=== PATIENT | female | born 1980 | race Hispanic/Latino ===

== ENCOUNTER → 2019-04-24 | Outpatient (CLI) | payer BC | END | disposition home or self-care (01) | LOC: RAH 08:04 | PROVIDERS: ATTEND Obstetrics & Gynecology | DX: Z12.31 Encounter for screening mammogram for malignant neoplasm of breast (principal) | CPT/HCPCS: 77067 ==

== ENCOUNTER → 2020-05-18 | Outpatient (CLI) | payer BC | END | disposition home or self-care (01) | LOC: RAH 14:51 | PROVIDERS: ATTEND Obstetrics & Gynecology | DX: Z12.31 Encounter for screening mammogram for malignant neoplasm of breast (principal) | CPT/HCPCS: 77067 ==

== ENCOUNTER → 2023-02-02 | Outpatient (CLI) | payer BC | END | disposition home or self-care (01) | LOC: RAH 08:25 | PROVIDERS: ATTEND Obstetrics & Gynecology | DX: Z12.31 Encounter for screening mammogram for malignant neoplasm of breast (principal) | CPT/HCPCS: 77067 ==

== ENCOUNTER → 2023-03-09 | Outpatient (CLI) | payer BC ==
[2023-03-09 16:21] LABS: BASOPHILS % (AUTO) 0.6 % (0.0-5.0); EOSINOPHILS % (AUTO) 1.5 % (0.0-8.0); HEMATOCRIT 38.1 % (36-48); LYMPHOCYTES % (AUTO) 33.6 % (21.0-51.0); MEAN CORPUSCULAR HEMOGLOBIN 27.5 pg (27.0-33.0); MEAN CORPUSCULAR HGB CONC 32.3 g/dL (32.0-36.0); MONOCYTES % (AUTO) 6.3 % (3.0-13.0); NEUTROPHILS % (AUTO) 57.8 % (40.0-77.0); PLATELET COUNT (AUTO) 305 K/uL (130-400); RED BLOOD CELL COUNT(AUTO) 4.48 MIL/uL (4.00-5.50); WHITE BLOOD COUNT (AUTO) 6.5 K/uL (4.8-10.8)
[2023-03-09 16:22] LABS: APPEARANCE,URINE CLOUDY (CLEAR); BILIRUBIN,URINE NEGATIVE (NEGATIVE); COLOR,URINE YELLOW (YELLOW); GLUCOSE, URINE (UA) NEGATIVE (NEGATIVE); KETONES,URINE NEGATIVE (NEGATIVE); LEUKOCYTE ESTERASE ,URINE NEGATIVE Leu/uL (NEGATIVE); NITRATE,URINE NEGATIVE (NEGATIVE); OCCULT BLOOD,URINE NEGATIVE (NEGATIVE); PH,URINE 5.5 (5.0-8.0); PROTEIN,URINE 20 mg/dL (NEGATIVE); UROBILINOGEN,URINE 0.2 mg/dL (0.2-1.0)
[2023-03-09 16:25] LABS: BACTERIA,URINE FEW /HPF (None Seen); MUCUS,URINE FEW LPF (None Seen); SQUAMOUS EPITHELIAL CELL,UR MOD /HPF (0-2)
[2023-03-09 16:43] LABS: HEMOGLOBIN A1C 5.4 % (4.0-6.0)
[2023-03-09 16:44] LABS: ALBUMIN 4.5 g/dL (3.5-5.0); CREATININE 0.7 mg/dL (0.5-1.5); POTASSIUM 3.7 mmol/L (3.5-5.1); THYROID STIMULATING HORMONE 1.16 uIU/mL (0.36-3.74); TOTAL PROTEIN, SERUM 7.4 g/dL (6.0-8.3)
== END | disposition home or self-care (01) ==
LOC: LAB 11:35
PROVIDERS: ATTEND Internal Medicine Cardiovascular Disease
DX: R00.2 Palpitations (principal)
CPT/HCPCS: 36415; 80053; 80061; 81001; 83036; 84443; 85025

== ENCOUNTER 2023-03-23 05:37 | Emergency (ER) | payer BC, OTHER ==
[~2023-03-23] VITALS: Ht 157.5 cm; Wt 81.6 kg
[2023-03-23] MEDS ORDERED: ONDANSETRON 4MG INJ ONE (05:45)
[2023-03-23 05:59] LABS: BASOPHILS % (AUTO) 0.3 % (0.0-5.0); EOSINOPHILS % (AUTO) 0.8 % (0.0-8.0); HEMATOCRIT 36.6 % (36-48); LYMPHOCYTES % (AUTO) 19.9 % (21.0-51.0); MEAN CORPUSCULAR HEMOGLOBIN 27.7 pg (27.0-33.0); MEAN CORPUSCULAR HGB CONC 33.3 g/dL (32.0-36.0); MEAN CORPUSCULAR VOLUME 83.2 fL (79-99); NEUTROPHILS % (AUTO) 71.7 % (40.0-77.0); PLATELET COUNT (AUTO) 276 K/uL (130-400); RED CELL DISTRIBUTION WIDTH 12.9 % (11.0-15.5); WHITE BLOOD COUNT (AUTO) 7.6 K/uL (4.8-10.8)
[2023-03-23] MEDS ORDERED: 0.9%NACL 1000ML 1,000 ML IV ONE (06:00)
[2023-03-23] MEDS ORDERED: KETOROLAC 30MG VIAL (30MG/ML) IVP ONE (06:00)
[2023-03-23] MEDS ORDERED: ONDANSETRON 4MG INJ IVP ONE (06:00)
[2023-03-23 06:06] LABS: APPEARANCE,URINE TURBID (CLEAR); BILIRUBIN,URINE NEGATIVE (NEGATIVE); COLOR,URINE LIGHT-ORANGE (YELLOW); GLUCOSE, URINE (UA) NEGATIVE (NEGATIVE); KETONES,URINE NEGATIVE (NEGATIVE); LEUKOCYTE ESTERASE ,URINE NEGATIVE Leu/uL (NEGATIVE); NITRATE,URINE NEGATIVE (NEGATIVE); OCCULT BLOOD,URINE NEGATIVE (NEGATIVE); PH,URINE 5.5 (5.0-8.0); PROTEIN,URINE 20 mg/dL (NEGATIVE); UROBILINOGEN,URINE 0.2 mg/dL (0.2-1.0)
[2023-03-23 06:12] LABS: BACTERIA,URINE RARE /HPF (None Seen); CALCIUM OXALATE CRYSTALS,UR RARE /LPF (None Seen); MUCUS,URINE MANY LPF (None Seen); SQUAMOUS EPITHELIAL CELL,UR MANY /HPF (0-2)
[2023-03-23 06:19] LABS: ALBUMIN 4.3 g/dL (3.5-5.0); CREATININE 0.7 mg/dL (0.5-1.5); POTASSIUM 3.5 mmol/L (3.5-5.1); TOTAL PROTEIN, SERUM 7.2 g/dL (6.0-8.3)
[2023-03-23 07:17] VITALS: BP 132/78; PULSE 70; RESP 18; O2SAT 98
== END 2023-03-23 08:53 | disposition home or self-care (01) ==
LOC: EDH 05:37
DX: N20.0 Calculus of kidney (principal); Z90.710 Acquired absence of both cervix and uterus
CPT/HCPCS: 99284; 74176; 96374; 96361; 96375; 80053; 83690; 85025; 81001; 36415; J2405; J1885

== ENCOUNTER → 2023-04-05 | Outpatient (CLI) | payer BC, OTHER ==
[2023-04-05 16:49] LABS: BASOPHILS # (AUTO) 0.04 K/uL (0.00-0.20); BASOPHILS % (AUTO) 0.6 % (0.0-5.0); EOSINOPHILS # (AUTO) 0.11 K/uL (0.00-0.70); EOSINOPHILS % (AUTO) 1.5 % (0.0-8.0); HEMATOCRIT 38.1 % (36-48); IMMATURE GRANULOCYTE ABSOLUTE 0.03 K/uL (0-1); LYMPHOCYTES # (AUTO) 2.4 K/uL (1.0-4.8); LYMPHOCYTES % (AUTO) 32.9 % (21.0-51.0); MEAN CORPUSCULAR HEMOGLOBIN 27.6 pg (27.0-33.0); MEAN CORPUSCULAR HGB CONC 32.5 g/dL (32.0-36.0); MEAN CORPUSCULAR VOLUME 84.7 fL (79-99); MONOCYTES # (AUTO) 0.5 K/uL (0.1-1.0); MONOCYTES % (AUTO) 6.8 % (3.0-13.0); NEUTROPHILS # (AUTO) 4.1 K/uL (1.8-7.7); NEUTROPHILS % (AUTO) 57.8 % (40.0-77.0); PLATELET COUNT (AUTO) 329 K/uL (130-400); RED CELL DISTRIBUTION WIDTH 13.2 % (11.0-15.5); WHITE BLOOD COUNT (AUTO) 7.2 K/uL (4.8-10.8)
[2023-04-05 16:54] LABS: CREATININE 0.8 mg/dL (0.5-1.5)
[2023-04-05 17:03] LABS: INR 0.93 (0.85-1.15); PROTHROMBIN TIME 10.7 SEC (9.6-11.6)
[2023-04-05 17:05] LABS: PARTIAL THROMBOPLASTIN TIME 27.2 SEC (26.3-35.5)
== END | disposition home or self-care (01) ==
LOC: LAB 15:11
PROVIDERS: ATTEND Internal Medicine Cardiovascular Disease
DX: I87.1 Compression of vein (principal); I87.2 Venous insufficiency (chronic) (peripheral)
CPT/HCPCS: 36415; 80048; 85025; 85610; 85730

== ENCOUNTER → 2024-02-05 | Outpatient (CLI) | payer BC | END | disposition home or self-care (01) | LOC: RAH 14:49 | PROVIDERS: ATTEND Obstetrics & Gynecology | DX: Z12.31 Encounter for screening mammogram for malignant neoplasm of breast (principal) | CPT/HCPCS: 77067 ==

== ENCOUNTER → 2024-10-14 | Outpatient (CLI) | payer BC, OTHER ==
[2024-10-14 12:27] LABS: BASOPHILS # (AUTO) 0.03 K/uL (0.00-0.20); BASOPHILS % (AUTO) 0.5 % (0.0-5.0); EOSINOPHILS % (AUTO) 1.6 % (0.0-8.0); HEMATOCRIT 39.1 % (36-48); IMMATURE GRANULOCYTE ABSOLUTE 0.02 K/uL (0-1); LYMPHOCYTES % (AUTO) 32.6 % (21.0-51.0); MEAN CORPUSCULAR HGB CONC 33.2 g/dL (32.0-36.0); MEAN CORPUSCULAR VOLUME 84.1 fL (79-99); MONOCYTES # (AUTO) 0.4 K/uL (0.1-1.0); MONOCYTES % (AUTO) 5.6 % (3.0-13.0); NEUTROPHILS # (AUTO) 3.7 K/uL (1.8-7.7); NEUTROPHILS % (AUTO) 59.4 % (40.0-77.0); PLATELET COUNT (AUTO) 357 K/uL (130-400); RED BLOOD CELL COUNT(AUTO) 4.65 MIL/uL (4.00-5.50); RED CELL DISTRIBUTION WIDTH 13.2 % (11.0-15.5); WHITE BLOOD COUNT (AUTO) 6.3 K/uL (4.8-10.8)
[2024-10-14 12:58] LABS: HEMOGLOBIN A1C 5.5 % (4.0-6.0)
[2024-10-14 14:53] LABS: ALBUMIN 4.8 g/dL (3.5-5.0); BILIRUBIN,TOTAL 0.6 mg/dL (0.2-1.0); CREATININE 1.8 mg/dL (0.5-1.0); MAGNESIUM 1.9 mg/dL (1.80-2.40); POTASSIUM 4.3 mmol/L (3.5-5.1); THYROID STIMULATING HORMONE 1.43 uIU/mL (0.36-3.74); TOTAL PROTEIN, SERUM 7.9 g/dL (6.0-8.3)
== END | disposition home or self-care (01) ==
LOC: LAB 10:59
PROVIDERS: ATTEND Internal Medicine Cardiovascular Disease
DX: E55.9 Vitamin D deficiency, unspecified (principal); R73.09 Other abnormal glucose; R00.2 Palpitations; Z83.42 Family history of familial hypercholesterolemia; Z82.49 Family history of ischemic heart disease and other diseases of the circulatory system; Z83.3 Family history of diabetes mellitus
CPT/HCPCS: 36415; 80050; 80053; 80061; 82306; 83036; 83735; 84443; 85025

== ENCOUNTER → 2024-10-16 | Outpatient (CLI) | payer BC, OTHER ==
[2024-10-16 12:04] LABS: CREATININE 0.7 mg/dL (0.5-1.0); POTASSIUM 4.2 mmol/L (3.5-5.1)
== END | disposition home or self-care (01) ==
LOC: LAB 08:09
PROVIDERS: ATTEND Internal Medicine Cardiovascular Disease
DX: N28.9 Disorder of kidney and ureter, unspecified (principal)
CPT/HCPCS: 36415; 80048

== ENCOUNTER → 2025-02-26 | Outpatient (CLI) | payer BC, OTHER | END | disposition home or self-care (01) | LOC: RAH 07:45 | PROVIDERS: ATTEND Obstetrics & Gynecology | DX: Z12.31 Encounter for screening mammogram for malignant neoplasm of breast (principal) | CPT/HCPCS: 77067 ==

== ENCOUNTER → 2025-03-20 | Outpatient (CLI) | payer BC, OTHER ==
--- NOTE | 2025-03-20 13:12 | HMCIMG ---
BILATERAL BREAST ULTRASOUND: CLINICAL HISTORY: Diffuse cystic mastopathy of both breasts Finding: Real-time examination of the both breasts demonstrates homogeneous echotexture throughout both the breasts without evidence of focal solid or cystic masses. There is a right axillary lymph node measuring 2.1 x 1.2 x 2.2 cm. There is a left axillary lymph node measuring 1.3 x 0.9 x 1.7 cm. IMPRESSION: No solid or cystic masses seen. I would recommend annual mammography with tomography CATEGORY 2: BENIGN FINDINGS Recommend monthly self breast exam as well as annual clinical examination. A negative x-ray should not delay biopsy if a dominant or clinically suspicious mass is present, since 8-10% of cancers are not identified by mammography. Dense breasts particularly, may obscure an underlying neoplasm. Some of these may be detected clinically and therefore, clinical examination is an essential part of breast evaluation. .
== END | disposition home or self-care (01) ==
LOC: RAH 08:16
PROVIDERS: ATTEND Obstetrics & Gynecology
DX: R92.2 Inconclusive mammogram (principal)